=== PATIENT | male | born 1950 | race Two or more races ===

== ENCOUNTER → 2019-07-06 17:18 | Outpatient (CLI) | payer MEDICARE, OTHER, SELFPAY ==
[2019-07-06 17:21] LABS: Bacteria 0 SEEN /hpf (None Seen); Red Blood Cells-Urine 0 SEEN /hpf (0-5); Squamous Epithelial Cells - UA 0 SEEN /hpf (0-5); White Blood Cells 0 SEEN /hpf (0-5)
[2019-07-06 17:44] LABS: Color, Urine Yellow (Yellow); Glucose, Dipstick Normal (Normal); Ketone-Dipstick 5 mg/dl (Negative); Leukocyte Esterase-Dipstick Negative /ul (Negative); Nitrite-Dipstick Negative (Negative); Occult Blood-Urine 50 /ul (Negative); Protein-Dipstick 15 mg/dl (Negative); Urine Clarity Clear (Clear); Urine Urobilinogen 1 mg/dl (Normal)
[2019-07-06 18:07] LABS: Calcium Oxalate Crystals Ur 1+ /hpf (<or=2+); Urine Bilirubin Dipstick 1 mg/dL (Negative)
[2019-07-06 18:08] LABS: Mucous, Urine RARE /hpf (<or=2+)
== END ==
PROVIDERS: Visit Provider Nurse Practitioner Adult Health
DX: R31.21 Asymptomatic microscopic hematuria (principal)
CPT/HCPCS: 81001; 87086